=== PATIENT | female | born 1995 | race Caucasian/White ===

== ENCOUNTER 2017-11-07 17:45 | Emergency (ER) | payer OTHER ==
[~2017-11-07] VITALS: Ht 165.1 cm; Wt 108.0 kg
[2017-11-07 17:50] VITALS: BP 164/105; PULSE 104; RESP 16; TEMP 98.5; O2SAT 97
[2017-11-07] MEDS ORDERED: DOXY100C PO (19:00)
[2017-11-07] MEDS ORDERED: SODIUM CHLORIDE 0.9% FLUSH 10 ML FLUSH IV FLUSH PRN (19:00)
[2017-11-07] MEDS ORDERED: LAMO100T PO (19:01)
[2017-11-07] MEDS ORDERED: LEXA20TA PO (19:01)
--- NOTE | 2017-11-07 19:01 | PD ---
HPI Chief Complaint: GI Complaint Time Seen by Provider: 18:47 Travel History International Travel<30 days: No Contact w/Intl Traveler<30days: No Traveled to known affect area: No History of Present Illness HPI Patient comes to the emergency department complaining of continued abdominal pain, diarrhea, and nausea. Patient states symptoms began 5 days ago she went to a different ER was given IV fluids and nausea medication. Patient states that she went back again yesterday because symptoms were not getting any better. Patient reports yesterday she was diagnosed with a UTI and started on antibiotics. Patient states she continues to have nausea and discomfort. Patient reports taking nausea medication that she was prescribed seems to help. Denies any fevers, back pain, , chest pain, shortness of breath, cough. Patient states pain is primarily right upper quadrant abdomen radiates to her back. Describes pain as sharp stabbing pain. Denies anything making the pain worse. Patient reports that she noticed some blood on the toilet today but she is on her menstrual cycle. Patient reports she had a pelvic ultrasound done yesterday looking for ovarian cyst. [facility] Past Medical History Anxiety: Yes Diminished Hearing: No Reproductive: Yes (ovarian cysts) Tetanus Vaccination: Unknown Influenza Vaccination: Yes ?: Not LMP: 11/06/17 Past Surgical History Appendectomy: Yes Social History Alcohol Use: No Tobacco Use: No Substance Use: No Allergies-Medications (Allergen,Severity, Reaction): Coded Allergies: ibuprofen (Verified Allergy, Severe, Anaphylaxis, 11/07/17) Reported Meds & Prescriptions Reported Meds & Active Scripts Active Reported Lamotrigine 100 Mg Tab 100 Mg PO DAILY Lexapro (Escitalopram Oxalate) 20 Mg Tab 20 Mg PO DAILY Doxycycline Hyclate 100 Mg Cap 100 Mg PO BID Review of Systems Except as stated in HPI: all other systems reviewed are Neg Physical Exam Narrative GENERAL: Well-developed, overly nourished, in no acute distress, and non-ill appearing. SKIN: Focused skin assessment warm and dry. HEAD: Atraumatic. Normocephalic. EYES: Pupils equal and round. EOMI. No scleral icterus. No injection or drainage. ENT: No nasal bleeding or discharge. Mucous membranes pink and moist. NECK: Trachea midline. Supple. No nuclear rigidity. CARDIOVASCULAR: Regular rate and rhythm. No murmur appreciated. RESPIRATORY: No accessory muscle use. No respiratory distress. Clear to auscultation. Breath sounds equal bilaterally. GASTROINTESTINAL: Abdomen soft, non-tender, nondistended, and no guarding. Hepatic and splenic margins not palpable. Normal bowel sounds x4. No pulsatile mass. No CVA tenderness. MUSCULOSKELETAL: No obvious deformities. No clubbing. No cyanosis. No edema. Full range of motion. NEUROLOGICAL: Awake and alert. No obvious cranial nerve deficits. Motor grossly within normal limits. Normal speech. PSYCHIATRIC: Appropriate mood and affect; insight and judgment normal. Data Data Last Documented VS Vital Signs Date Time Temp Pulse Resp B/P (MAP) Pulse Ox O2 Delivery O2 Flow Rate FiO2 11/07/17 19:22 99 Room Air 11/07/17 18:43 18 11/07/17 17:50 98.5 104 164/105 (124) Orders Orders Complete Blood Count With Diff (11/07/17 18:47) Comprehensive Metabolic Panel (11/07/17 18:47) Lipase (11/07/17 18:47) Urinalysis - C+S If Indicated (11/07/17 18:47) Iv Access Insert/Monitor (11/07/17 18:47) Ecg Monitoring (11/07/17 18:47) Oximetry (11/07/17 18:47) Sodium Chloride 0.9% Flush (Ns Flush) (11/07/17 19:00) Ed Urine Pregnancytest Poc (11/07/17 18:47) Influenzae A/B Antigen (11/07/17 18:55) Us Abdomen Gallbladder (11/07/17 19:01) Metoclopramide Inj (Reglan Inj) (11/07/17 19:30) Ed Discharge Order (11/07/17 21:41) Potassium Chloride (Kcl) (11/07/17 21:45) Labs Laboratory Tests Test 11/07/17 19:19 White Blood Count 12.0 TH/MM3 Red Blood Count 4.89 MIL/MM3 Hemoglobin 13.1 GM/DL Hematocrit 39.3 % Mean Corpuscular Volume 80.3 FL Mean Corpuscular Hemoglobin 26.7 PG Mean Corpuscular Hemoglobin Concent 33.2 % Red Cell Distribution Width 14.7 % Platelet Count 298 TH/MM3 Mean Platelet Volume 8.1 FL Neutrophils (%) (Auto) 73.2 % Lymphocytes (%) (Auto) 18.6 % Monocytes (%) (Auto) 4.5 % Eosinophils (%) (Auto) 3.3 % Basophils (%) (Auto) 0.4 % Neutrophils # (Auto) 8.8 TH/MM3 Lymphocytes # (Auto) 2.2 TH/MM3 Monocytes # (Auto) 0.5 TH/MM3 Eosinophils # (Auto) 0.4 TH/MM3 Basophils # (Auto) 0.0 TH/MM3 CBC Comment DIFF FINAL Differential Comment Urine Color YELLOW Urine Turbidity HAZY Urine pH 6.0 Urine Specific [place] 1.036 Urine Protein TRACE mg/dL Urine Glucose (UA) NEG mg/dL Urine Ketones 10 mg/dL Urine Occult Blood MOD Urine Nitrite NEG Urine Bilirubin NEG Urine Urobilinogen LESS THAN 2.0 MG/DL Urine Leukocyte Esterase NEG Urine RBC 7 /hpf Urine WBC 1 /hpf Urine Squamous Epithelial Cells 7 /hpf Urine Mucus MOD /lpf Microscopic Urinalysis Comment CULT NOT INDICATED Blood Urea Nitrogen 10 MG/DL Creatinine 0.77 MG/DL Random Glucose 83 MG/DL Total Protein 7.9 GM/DL Albumin 3.7 GM/DL Calcium Level 9.1 MG/DL Alkaline Phosphatase 84 U/L Aspartate Amino Transf (AST/SGOT) 24 U/L Alanine Aminotransferase (ALT/SGPT) 35 U/L Total Bilirubin 0.2 MG/DL Sodium Level 140 MEQ/L Potassium Level 3.3 MEQ/L Chloride Level 107 MEQ/L Carbon Dioxide Level 21.9 MEQ/L Anion Gap 11 MEQ/L Estimat Glomerular Filtration Rate 93 ML/MIN Lipase 109 U/L MDM Medical Decision Making Medical Screen Exam Complete: Yes Emergency Medical Condition: Yes Interpretation(s) Last Impressions Gall Bladder Ultrasound 11/07/17 190 Signed Impressions: CONCLUSION: Negative right upper quadrant ultrasound examination. Differential Diagnosis Biliary colic, gastroenteritis, cholecystitis, UTI, metabolic disturbance Narrative Course Previous medical records were attempted to be obtained from [facility] without success. Patient was offered pelvic exam to rule out STD causing right upper quadrant pain. Patient declined. The patient presented with upper epigastric abdominal pain suspicious for gastroenteritis. There was no significant history of diarrhea and no fever. The patient appeared comfortable, well hydrated and the abdominal exam was unremarkable and minimal to nontender to me. Laboratory and ultrasound evaluation revealed no significant abnormality. There was no evidence of an acute, surgical abdomen at this time. There was no clinical evidence to support cholecystitis/cholelithiasis, pancreatitis, perforation of gastric ulcer, colitis, diverticulitis, bacterial peritonitis, obstruction, volvulus, early appendicitis, or hernial incarceration or strangulation nor significant GIB at this time. There was no evidence to support vascular pathology such as AAA, mesenteric ischemia. There was also no clinical evidence by history, exam or risk factors to suggest atypical presentation of cardiac disease such as ACS, AMI or atypical angina. No evidence to suggest genitourinary etiology as well. During the course of the ED visit, the patient noted improvement. Clinical picture was discussed with the patient, as well as plan of care. The patient was instructed to follow up with their physician. Abdominal pain warnings were discussed with the patient. The patient is to return if worsens, pain worsens or changes, develop fever, inability to tolerate fluids with or without vomiting , unable to establish follow up or as needed. The patient agrees with plan. Patient in no obvious distress upon re-evaluation. All pertinent laboratory/ Radiology result(s) discussed with patient. Discussed patient with Dr. Davenport, who saw and evaluated the patient and is in agreement with plan of care disposition. Any questions/concerns in reference to patient diagnosis/ condition discussed and clarified prior to patient's discharge. Reinforced sheer importance of close follow up with patient's primary physician or primary care clinic and/or GI. Instructed patient to return to ED immediately, if symptoms return/worsen. Patient showed understanding of above instructions. Further instructions and recommendations were detailed in discharge paperwork. Patient ambulated without difficulty out of ED at discharge. Diagnosis Primary Impression: Viral gastroenteritis Additional Impression: Hypokalemia Referrals: Ashlyn Ludwig MD [facility] Patient Instructions: Gastroenteritis (ED), General Instructions, Hypokalemia ( ED) Additional Instructions: Follow-up with your primary care physician and/or GI doctor next week for evaluation. Drink plenty of non-caffeinated and nonalcoholic fluids. Return to the emergency department if symptoms get worse. Disposition: 01 DISCHARGE HOME Condition: Stable Flavio Lewis Nov 07, 2017 19:01
[2017-11-07 19:22] VITALS: O2SAT 99
[2017-11-07] MEDS ORDERED: METOCLOPRAMIDE HCL 10 MG/2 ML VIAL IV PUSH ONE (19:30)
--- NOTE | 2017-11-07 19:30 | PD ---
Physical Exam Narrative I, Dr. Davenport, have reviewed the advance practice practitioner's documentation and am in agreement, met with the patient face to face, made the diagnosis, and the medical decision making was done by me. *My assessment and Findings: Acute cholecystitis vs. cholelithiasis vs. viral syndrome 22yo well appearing female here with c/o abdominal pain 5 days ago. Pt went to [facility] 2 times already and they did a pelvic ultrasounds because her pain was initially lower. Found to have UTI and currently being treated. Said it is now right upper abdomen radiating to the back. +Nausea. Denies any chest pain, sob. PSH include appendectomy. Labs reviewed, WBC 12, 000. H/H normal. Mild hypokalemia at 3.3, replaced orally. Lipase normal. LFT normal. UA showed moderate blood. WBC 1. Influenza negative. US gallbladder showed negative right upper quadrant ultrasound. Urine negative. Pt given reglan and feels better. Return precautions given. Data Data Last Documented VS Vital Signs Date Time Temp Pulse Resp B/P (MAP) Pulse Ox O2 Delivery O2 Flow Rate FiO2 11/07/17 19:22 99 Room Air 11/07/17 18:43 18 11/07/17 17:50 98.5 104 164/105 (124) Orders Orders Complete Blood Count With Diff (11/07/17 18:47) Comprehensive Metabolic Panel (11/07/17 18:47) Lipase (11/07/17 18:47) Urinalysis - C+S If Indicated (11/07/17 18:47) Iv Access Insert/Monitor (11/07/17 18:47) Ecg Monitoring (11/07/17 18:47) Oximetry (11/07/17 18:47) Sodium Chloride 0.9% Flush (Ns Flush) (11/07/17 19:00) Ed Urine Pregnancytest Poc (11/07/17 18:47) Influenzae A/B Antigen (11/07/17 18:55) Us Abdomen Gallbladder (11/07/17 19:01) Metoclopramide Inj (Reglan Inj) (11/07/17 19:30) Ed Discharge Order (11/07/17 21:41) Potassium Chloride (Kcl) (11/07/17 21:45) Labs Laboratory Tests Test 6/8/18 19:19 White Blood Count 12.0 TH/MM3 Red Blood Count 4.89 MIL/MM3 Hemoglobin 13.1 GM/DL Hematocrit 39.3 % Mean Corpuscular Volume 80.3 FL Mean Corpuscular Hemoglobin 26.7 PG Mean Corpuscular Hemoglobin Concent 33.2 % Red Cell Distribution Width 14.7 % Platelet Count 298 TH/MM3 Mean Platelet Volume 8.1 FL Neutrophils (%) (Auto) 73.2 % Lymphocytes (%) (Auto) 18.6 % Monocytes (%) (Auto) 4.5 % Eosinophils (%) (Auto) 3.3 % Basophils (%) (Auto) 0.4 % Neutrophils # (Auto) 8.8 TH/MM3 Lymphocytes # (Auto) 2.2 TH/MM3 Monocytes # (Auto) 0.5 TH/MM3 Eosinophils # (Auto) 0.4 TH/MM3 Basophils # (Auto) 0.0 TH/MM3 CBC Comment DIFF FINAL Differential Comment Urine Color YELLOW Urine Turbidity HAZY Urine pH 6.0 Urine Specific [place] 1.036 Urine Protein TRACE mg/dL Urine Glucose (UA) NEG mg/dL Urine Ketones 10 mg/dL Urine Occult Blood MOD Urine Nitrite NEG Urine Bilirubin NEG Urine Urobilinogen LESS THAN 2.0 MG/DL Urine Leukocyte Esterase NEG Urine RBC 7 /hpf Urine WBC 1 /hpf Urine Squamous Epithelial Cells 7 /hpf Urine Mucus MOD /lpf Microscopic Urinalysis Comment CULT NOT INDICATED Blood Urea Nitrogen 10 MG/DL Creatinine 0.77 MG/DL Random Glucose 83 MG/DL Total Protein 7.9 GM/DL Albumin 3.7 GM/DL Calcium Level 9.1 MG/DL Alkaline Phosphatase 84 U/L Aspartate Amino Transf (AST/SGOT) 24 U/L Alanine Aminotransferase (ALT/SGPT) 35 U/L Total Bilirubin 0.2 MG/DL Sodium Level 140 MEQ/L Potassium Level 3.3 MEQ/L Chloride Level 107 MEQ/L Carbon Dioxide Level 21.9 MEQ/L Anion Gap 11 MEQ/L Estimat Glomerular Filtration Rate 93 ML/MIN Lipase 109 U/L [facility] Supervised Visit with JULIANE: Yes Diagnosis Primary Impression: Abdominal pain Qualified Codes: R10.11 - Right upper quadrant pain Jo Ann Davenport DO Nov 07, 2017 19:30
[2017-11-07 19:34] LABS: AUTOMATED NEUTROPHIL # 8.8 TH/MM3 (1.8-7.7); BASOPHIL % 0.4 % (0.0-2.0); EOSINOPHIL # 0.4 TH/MM3 (0-0.4); EOSINOPHIL % 3.3 % (0.0-4.0); HEMATOCRIT 39.3 % (35.0-46.0); HEMOGLOBIN 13.1 GM/DL (11.6-15.3); LYMPH % 18.6 % (9.0-44.0); LYMPHOCYTE # 2.2 TH/MM3 (1.0-4.8); MEAN CELL VOLUME 80.3 FL (80.0-100.0); MEAN CORPUSCULAR HEMOGLOBIN 26.7 PG (27.0-34.0); MEAN CORPUSCULAR HGB CONC 33.2 % (32.0-36.0); MEAN PLATELET VOLUME 8.1 FL (7.0-11.0); MONO % 4.5 % (0.0-8.0); MONOCYTE # 0.5 TH/MM3 (0-0.9); NEUT % 73.2 % (16.0-70.0); PLATELET COUNT 298 TH/MM3 (150-450); RED BLOOD COUNT 4.89 MIL/MM3 (4.00-5.30); RED CELL DISTRIBUTION WIDTH 14.7 % (11.6-17.2)
[2017-11-07 19:49] LABS: BILIRUBIN, URINE NEG (NEG); BLOOD, URINE MOD (NEG); GLUCOSE,URINE NEG (NEG); KETONE, URINE 10 mg/dL (NEG); MUCUS URINE MOD /lpf (OCC); NITRITE,URINE NEG (NEG); SQUAMOUS EPITHELIAL CELL URINE 7 /hpf (0-5); URINE COLOR YELLOW (YELLW/STRAW); URINE LEUKOCYTE ESTERASE NEG (NEG)
[2017-11-07 20:07] LABS: ALBUMIN 3.7 GM/DL (3.4-5.0); AST (GOT) 24 U/L (15-37); BICARBONATE 21.9 MEQ/L (21.0-32.0); BLOOD UREA NITROGEN 10 MG/DL (7-18); CALCIUM 9.1 MG/DL (8.5-10.1); CHLORIDE 107 MEQ/L (98-107); CREATININE 0.77 MG/DL (0.50-1.00); GLOMERULAR FILTRATION RATE 93 ML/MIN (>89); GLUCOSE,RANDOM 83 MG/DL (74-106); SODIUM (NA) 140 MEQ/L (136-145)
[2017-11-07 20:08] LABS: ALT (GPT) 35 U/L (10-53)
[2017-11-07 20:10] LABS: ALKALINE PHOSPHATASE 84 U/L (45-117); TOTAL BILIRUBIN ADULT 0.2 MG/DL (0.2-1.0); TOTAL PROTEIN 7.9 GM/DL (6.4-8.2)
--- NOTE | 2017-11-07 21:26 | RADRPT ---
EXAM DATE: 11/07/2017 9:21 PM EDT AGE/SEX: 22 years / Female INDICATIONS: Abdominal pain with nausea and vomiting x 3 days. CLINICAL DATA: This is the patient's initial encounter. Patient reports that signs and/or symptoms h ave been present for 3 days and indicates a pain score of 2/10. MEDICAL/SURGICAL HISTORY: . Abdominal pain. None. COMPARISON: No prior exams available for comparison. MEASUREMENTS (cm x cm x cm): Liver:__ 15.0 cm length Common Bile Duct:__ 4mm FINDINGS: Liver: Normal echotexture without focal lesion or ductal dilatation. Portal Vein: Hepatopedal flow seen in portal vein. Common Duct: No intraluminal mass or stone visualized. Gallbladder: Demonstrates no wall thickening or pericholecystic fluid. No stones visualized. Pancreas: The visualized portions are within normal limits Right Kidney: No mass or hydronephrosis Other: None. CONCLUSION: Negative right upper quadrant ultrasound examination. Electronically signed by: Jan Mcmullen MD 11/07/2017 9:24 PM EDT
[2017-11-07] MEDS ORDERED: POTASSIUM CHLORIDE 20 MEQ CONTROLLED RELEASE TAB PO ONE (21:45)
== END 2017-11-07 21:52 | disposition home or self-care (01) ==
LOC: NEPC 17:45
DX: A08.4 Viral intestinal infection, unspecified (principal); R10.11 Right upper quadrant pain; E87.6 Hypokalemia; N39.0 Urinary tract infection, site not specified
CPT/HCPCS: 76705; 80053; 81001; 83690; 84703; 85025; 87804; 96374; 99284; J2765